=== PATIENT | male | born 1975 | race Caucasian/White ===

== ENCOUNTER 2016-04-16 02:31 | Emergency (ER) | payer OTHER ==
--- NOTE | ~2016-04-16 | CR72 ---
[facility] A Service of [facility] & [facility] RADIOLOGY TEXT RESULTS PATIENT: ELBERT RIBEIRO LOCATION: [facility] : 79 UNIT #: [id number] AGE: [address]: Samuel Oneill MD SEX: M ORDER DR: [id number] [facility] [address] [place], [place] [address] [id number] E MR#: [id number] Acc #: [id number] NAME: ELBERT RIBEIRO. : 1975 SEX: M STUDY DATE/TIME: 04/16/2016 2:22 UNIT: [facility] ROOM: STUDY DESCRIPTION: CR Chest Single View Portable Attending Physician: Samuel Oneill M.D. Ordering Physician: Samuel Oneill M.D. Primary Care Physician: [facility] MEDICAL IMAGING REPORT This report is preliminary unless electronic signature is present EXAM AP portable chest. DATE OF EXAM 04/16/2016 at 02:22. HISTORY Chest pain for 2 days. COMPARISON AP portable chest, 04/15/2013. FINDINGS A single AP portable view of the chest shows both lungs to be clear. The heart is normal in size. The mediastinal contour is normal. No significant bone abnormalities are seen. IMPRESSION Normal AP portable chest. Dictated by... Deanna Linder M.D. THIS IS AN ELECTRONICALLY VERIFIED REPORT Deanna Linder M.D. at 04/16/2016 10:47 PM NICOLE/nba TD: 04/16/2016 22:30 JOB #: [id number] MEDICAL IMAGING REPORT COPY
--- NOTE | ~2016-04-16 | EKG ---
PATIENT: ELBERT RIBEIRO UNIT #: [id number] Ventricular Rate: 55 BPM Atrial Rate: 55 BPM P-R Interval: 148 ms QRS Duration: 90 ms Q-T Interval: 392 ms QTC Calculation(Bezet): 375 ms P [place]: 54 degrees Calculated R [place]: 68 degrees Calculated T [place]: 51 degrees Diagnosis Line: Sinus bradycardia Diagnosis Line: Otherwise normal ECG Diagnosis Line: When compared with ECG of 09-SEP-2013 08:45, Diagnosis Line: No significant change was found Diagnosis Line: Confirmed by CEE LOPEZ MD ([id number]) on Diagnosis Line: 04/18/2016 12:02:53 AM INTERPRETING MD: JOHN EMMANUEL
[2016-04-16 02:24] LABS: BASOPHIL# 0.2 X10e3 (0-0.3); BASOPHIL% 1.5 % (0-2.5); EOSINOPHIL# 0.2 X10e3 (0-0.7); EOSINOPHIL% 1.8 % (0.0-7.0); HEMATOCRIT 45.9 % (38.0-50.0); HEMOGLOBIN 15.8 gm/dL (13.0-16.0); LYMPHOCYTE# 3.2 X10e3 (1.0-3.5); MEAN CELL VOLUME 90.8 FL (83-96); MEAN CORPUSCULAR HEMOGLOBIN 31.2 PG (28-34); MEAN CORPUSCULAR HGB CONC 34.3 g/dL (30-36); MEAN PLATELET VOLUME 6.8 FL (6.5-11.5); MONOCYTE# 0.8 X10e3 (0-1.0); MONOCYTE% 8.2 % (3.0-12.0); NEUTROPHIL# 5.9 X10e3 (1.5-7.1); NEUTROPHIL% 57.5 % (40-75); PLATELET COUNT 189 X10e3 (140-420); RED BLOOD COUNT 5.06 X10e (3.90-5.60); WHITE BLOOD COUNT 10.2 X10e3 (4.0-10.5)
[2016-04-16 02:25] LABS: DIFF IND NO
[~2016-04-16 02:31] MED LIST: FLEXERIL10 M1 PO; MOBIC PO; PERCOCET5/325 PO
[2016-04-16 02:47] LABS: ALBUMIN SERUM 3.8 g/dL (3.5-5.0); ALKALINE PHOSPHATASE 69 U/L (32-92); ALT (SGPT) 100 U/L (10-40); AST (SGOT) 58 U/L (10-42); BILIRUBIN, DIRECT 0.1 mg/dL (0.0-0.2); BILIRUBIN,INDIRECT 0.4 mg/dL (0.0-0.9); BILIRUBIN,TOTAL 0.5 mg/dL (0.2-2.0); BLOOD UREA NITROGEN 16 mg/dL (9-23); CALCIUM SERUM 8.9 mg/dL (8.4-10.2); CARBON DIOXIDE 27 mmol/L (22-31); CHLORIDE 102 mmol/L (100-111); GLOM FILT RATE Estimated ABOVE60 mL/min (>60); GLUCOSE FASTING 106 mg/dL (70-110); POTASSIUM 4.2 mmol/L (3.5-5.1); PROTEIN TOTAL SERUM 6.7 g/dL (6.0-8.3); SODIUM 136 mmol/L (135-145)
[2016-04-16 04:04] LABS: POC - CKMB <1.0 ng/mL (0.0-7.9); POC - TROPONIN <0.05 ng/mL (<=0.05)
== END 2016-04-16 04:30 | disposition home or self-care (01) ==
LOC: CED 02:31
PROVIDERS: Emergency Medicine
DX: R07.89 Other chest pain (principal); Z88.0 Allergy status to penicillin; Z90.49 Acquired absence of other specified parts of digestive tract; F17.200 Nicotine dependence, unspecified, uncomplicated
CPT/HCPCS: 36415; 71010; 80048; 80076; 82553; 84484; 85025; 93005; 96374; 99284; J1885